=== PATIENT | male | born 1980 | race African-American/Black ===

== ENCOUNTER 2017-08-30 07:47 | Emergency (ER) | payer OTHER ==
[~2017-08-30] VITALS: Ht 167.6 cm; Wt 86.2 kg
[2017-08-30] MEDS ORDERED: ZIAC 2.5-6.25 MG1 EA PO (08:01)
[2017-08-30] MEDS ORDERED: KEPPRA500 MG PO (08:01)
[2017-08-30] MEDS ORDERED: KEFLEX500 MG PO (09:01)
[2017-08-30] MEDS ORDERED: IBUPROFEN600 MG PO (09:01)
== END 2017-08-30 09:25 | disposition home or self-care (01) ==
LOC: ED 07:47
PROC: 0HQ1XZZ Repair Face Skin, External Approach (ICD-10-PCS; principal; 2017-08-30)
DX: S01.511A Laceration without foreign body of lip, initial encounter (principal); S09.93XA Unspecified injury of face, initial encounter; Z23 Encounter for immunization; I10 Essential (primary) hypertension; G40.909 Epilepsy, unspecified, not intractable, without status epilepticus; Z79.899 Other long term (current) drug therapy; X58.XXXA Exposure to other specified factors, initial encounter
CPT/HCPCS: 12051; 90471; 90715; 99282

== ENCOUNTER 2017-12-13 09:28 | Emergency (ER) | payer OTHER ==
[~2017-12-13] VITALS: Ht 167.6 cm; Wt 86.2 kg
[~2017-12-13 09:28] MED LIST: IBUPROFEN600 MG PO; KEFLEX500 MG PO; KEPPRA500 MG PO; ZIAC 2.5-6.25 MG1 EA PO
== END 2017-12-13 10:27 | disposition home or self-care (01) ==
LOC: ED 09:28
PROC: 0HQ1XZZ Repair Face Skin, External Approach (ICD-10-PCS; principal; 2017-12-13)
DX: S01.511A Laceration without foreign body of lip, initial encounter (principal); I10 Essential (primary) hypertension; G40.909 Epilepsy, unspecified, not intractable, without status epilepticus; Z79.899 Other long term (current) drug therapy; W45.8XXA Other foreign body or object entering through skin, initial encounter
CPT/HCPCS: 12011; 99282